=== PATIENT | male | born 1960 | race Caucasian/White ===

== ENCOUNTER 2020-10-25 11:20 | Observation (INO) | payer OTHER, SELFPAY ==
[2020-10-25] VITALS (68 sets, daily range): BP systolic 98–162; BP diastolic 47–84; PULSE 70–103; RESP 10–31; TEMP 36.6; O2SAT 93–100; BMI 31.8
--- NOTE | ~2020-10-25 | XR_ITS ---
XR chest 1V portable DATE: 10/25/2020 14:50 INDICATION: Dizziness. Weakness. Hypertension. TECHNIQUE: Portable AP chest on 10/25/2020 at 1452 hours COMPARISON: 07/11/2018 2 view chest FINDINGS: Normal heart size. No hilar or mediastinal enlargement. No pulmonary infiltrate or consolid ation, pleural effusion or pulmonary vascular congestion or pneumothorax. IMPRESSION: No active cardiopulmonary disease Reviewed, dictated and finalized at location A.
--- NOTE | ~2020-10-25 | CT_ITS ---
EXAMINATION: CT brain wo con EXAM DATE: 10/25/2020 12:35 INDICATION: Dizziness and syncope. TECHNIQUE: Spiral CT of the head was performed without contrast. Axial, coronal and sagittal images were reviewed. The dose-length product (DLP) for this examination was 681.00 mGy-cm. The exposure w as tailored according to patient size, and iterative reconstruction (ASIR) was used as additional dos e reduction technique. There is no prior study for comparison. FINDINGS: There is no acute intraparenchymal hemorrhage. No evidence of intraparenchymal brain mass lesion. No evidence of acute infarction. There is no mass effect or midline shift. The ventricles are normal in size. There are no extra-axial collections. There are no acute calvarial fractures. T he orbits are unremarkable. Soft tissue is unremarkable. The visualized sinuses and mastoid air mayank ls are well aerated. IMPRESSION: 1. No acute intracranial findings. Reviewed, dictated and finalized at location A.
--- NOTE | ~2020-10-25 | US_ITS ---
EXAMINATION: US carotid duplex BI EXAM DATE: 10/26/2020 08:54 INDICATION: Dizziness, vertigo. TECHNIQUE: Grayscale, color and pulsed Doppler images of the cervical carotid arteries were obtained . The degree of vessel stenosis is placed in one of the following categories: normal, <50% stenosis, 50-69% stenosis, >=70% stenosis but less than near-occlusion, near-occlusion, or occlusion. Note that percent stenosis relative to normal distal artery lumen diameter is indirectly measured from velocit y measurements as described by Sunny, et al. Radiology 2003; 229:340-346. There is no prior study fo r comparison. FINDINGS: RIGHT SIDE: Right common carotid artery peak systolic velocity (PSV in cm/s): 87 Right bulb/internal carotid artery peak systolic velocity (PSV in cm/s): 94 Right internal carotid artery end diastolic velocity (EDV in cm/s): 36 Right ICA/CCA peak systolic ratio: 1.1 Right external carotid artery peak systolic velocity (PSV in cm/s): 103 Right vertebral artery antegrade flow: yes There is no focal plaque identified. LEFT SIDE: Left common carotid artery peak systolic velocity (PSV in cm/s): 149 Left bulb/internal carotid artery peak systolic velocity (PSV in cm/s): 69 Left internal carotid artery end diastolic velocity (EDV in cm/s): 22 Left ICA/CCA peak systolic ratio: 0.5 Left external carotid artery peak systolic velocity (PSV in cm/s): 76 Left vertebral artery antegrade flow: yes There is no focal plaque identified. IMPRESSION: 1. Normal right internal carotid artery. 2. Normal left internal carotid artery. Reviewed, dictated and finalized at location A.
--- NOTE | ~2020-10-25 | MR_ITS ---
EXAMINATION: MR brain/brain stem wo/w con DATE: 10/26/2020 08:45 INDICATION: Vertigo. TECHNIQUE: Magnetic resonance imaging (MRI) of the brain and brainstem was performed without and with 20 mL MultiHance intravenous contrast. Sequences included sagittal and axial T1-weighted FSE, axial diffusion-weighted FS EPI, axial T2*-weighted GRE, axial T2-weighted FLAIR Propeller, and axial T2-we ighted Propeller. Postcontrast sequences included axial and coronal T1-weighted FSE. Apparent diffusi on coefficient (ADC) maps were created. COMPARISON: Head CT 10/25/2020 FINDINGS: There is a focus of increased T2-weighted signal intensity in the left frontal lobe deep wh ite matter, which is normal as an isolated finding. There is no intracranial hemorrhage, acute infarc tion, or abnormal intracranial mass lesion. The ventricles are normal in size. The paranasal sinuses are clear. The orbits are normal. The mastoid air cells are normal. IMPRESSION: 1. Normal brain. Reviewed, dictated and finalized at location A. IMPRESSION: 1. Normal brain.
--- NOTE | 2020-10-25 11:27 | ECG_ITS ---
Measurements Intervals Percival Rate: 97 P: 53 NV: 149 QRS: 11 QRSD: 104 T: 32 QT: 359 QTc: 458 Interpretive Statements SINUS RHYTHM NORMAL ECG Electronically Signed On 10-25-2020 15:18:54 CDT by Girma Fung D.O.
[2020-10-25 11:49] LABS: Basophils Absolute Auto 0.1 K/mm3 (0.0-0.1); Basophils Percent Auto 0.8 % (0.2-1.2); Eosinophils Absolute Auto 0.1 K/mm3 (0-0.3); Eosinophils Percent Auto 1.5 % (0-4.4); Hematocrit 48.3 % (42.0-52.0); Hemoglobin 16.7 g/dL (14.0-18.0); Immature Granulocyte Absolute 0.04 K/mm3 (0.00-0.031); Immature Granulocyte Percent A 0.5 % (0-0.5); Lymphocytes Absolute Auto 2.22 K/mm3 (0.9-3.2); Lymphocytes Percent Auto 26.9 % (18.3-44.2); Mean Corpuscular HGB Conc 34.6 g/dl (32-36); Mean Corpuscular Hemoglobin 31.9 pg (26-34); Mean Corpuscular Volume 92.2 fl (80-100); Mean Platelet Volume 9.1 fl (7.4-10.4); Monocytes Absolute Auto 0.7 K/mm3 (0.1-0.6); Monocytes Percent Auto 7.9 % (2.6-8.5); Neutrophils Absolute Auto 5.2 K/mm3 (1.3-6.7); Neutrophils Percent Auto 62.4 % (45.5-73.1); Platelet Count Result 305 k/mm3 (150-375); Red Blood Count 5.24 M/mm3 (4.6-6.20); Red Cell Distribution Width 12.2 % (11.5-14.5); White Blood Count 8.3 K/mm3 (4.5-10.0)
[2020-10-25 12:00] LABS: Anion Gap 11 mmol/L (8-16); Blood Urea Nitrogen 15 mg/dL (9-20); Calcium 9.8 mg/dL (8.4-10.2); Carbon Dioxide 25 mmol/L (22-30); Chloride 106 mmol/L (98-107); Estimated CRCL calculation 95 ml/min; Estimated Glomerular Filt Rate > 60; Glucose 115 mg/dL (75-110); Potassium 3.9 mmol/L (3.4-5.0); Sodium 142 mmol/L (137-145)
[2020-10-25 12:49] LABS: Alanine Aminotransferase 79 U/L (4-50); Albumin Level 4.8 g/dL (3.5-5.1); Alkaline Phosphatase 74 U/L (38-126); Aspartate Amino Transferase 60 U/L (17-59)
--- NOTE | 2020-10-25 12:57 | ED.DIZZY ---
HPI - Dizziness General Chief Complaint: Dizziness Stated Complaint: dizziness Time Seen by Provider: 10/25/20 12:26 Source: patient, family and RN notes reviewed Limitations: no limitations History of Present Illness HPI Narrative: Patient is 60 years old white male brought to the emergency room by his because of dizziness. Patient noticed every time when he sit up from laying down position, everything spins associated with nausea and diaphoresis. Patient also reported that turning his head to either direction can trigger that feeling. The symptoms improves if he remaining still. Patient denies any fever, chills, vomiting, chest pain, shortness of breath, focal deficit. Patient does not take medicine at home, does not smoke or drink or uses drugs. Currently still feeling dizzy while sitting in bed. Related Data Allergies Allergy/AdvReac Type Severity Reaction Status Date / Time ALMA DELIA Inhibitors Allergy Unknown Verified 04/16/13 12:10 cocoa Allergy Unknown Verified 04/16/13 12:10 doxycycline Allergy Unknown Verified 04/16/13 12:09 MUSHROOMS Allergy Intermediate N&V,DIZZINE Uncoded 02/26/15 08:08 SS Chocolate Allergy Unknown DIZZINESS, Uncoded 10/27/17 23:00 IRREGULAR HR Review of Systems Review of Systems: Narrative: CONSTITUTIONAL: Denies fever, chills, or sweats. EYES: Denies visual changes, redness, or discharge. ENT: Denies rhinorrhea, congestion, sore throat, or otalgia. CARDIOVASCULAR: Denies chest pain, palpitations, or edema. RESPIRATORY: Denies cough or dyspnea. GASTROINTESTINAL: Denies abdominal pain, nausea, vomiting, or diarrhea. GENITOURINARY: Denies dysuria or hematuria. SKIN: Denies rash or itching. MUSCULOSKELETAL: Denies back pain, joint pain, or myalgia. NEUROLOGIC: Denies headache, numbness, or weakness. PSYCHIATRIC: Denies anxiety or depression. PMFSH Social History Social History Smoking end date: 05/22/91 Gender identity (if verbalized by the patient): Male Exam Narrative: Exam Narrative: General appearance: Well-developed, well-nourished Skin: Normal color Head: Normocephalic, nontraumatic Eyes: Clear conjunctiva ENT: Oropharynx normal, ears normal, nose normal Neck: Supple, nontender Chest and respiratory: Airway patent, no respiratory distress, no accessory muscle use Heart: Regular rate/rhythm Abdomen: Soft, nontender, no organomegaly, quiet bowel sounds Vascular: Normal peripheral pulses, normal capillary refill. Musculoskeletal: Normal range of motion, nontender back Neurologic: Alert and oriented ?3, HIGHWAY CONSTRUCTION INSPECT[employer] is normal as tested, no gross motor deficit Course Course Emergency Course: Stable Vital Signs Vital signs: Vital Signs Temperature 36.6 C 10/25/20 11:28 Pulse Rate 103 H 10/25/20 11:28 Respiratory Rate 16 10/25/20 11:28 Blood Pressure 136/84 10/25/20 11:28 Pulse Oximetry 97 10/25/20 11:28 Temperature 36.6 C 10/25/20 11:28 Pulse Rate 78 10/25/20 13:31 Respiratory Rate 24 H 10/25/20 13:31 Blood Pressure 131/75 10/25/20 13:31 Pulse Oximetry 95 10/25/20 13:16 MDM - Dizziness MDM Narrative Medical decision making narrative: Benign positional vertigo is my concern. Labs, CT head, chest x-ray, IV access, 5 mg Valium IV, Antivert 25 mg orally, Zofran 8 mg IV ordered. Further plan to follow Differential Diagnosis Differential diagnosis: Likely benign paroxysmal positional vertigo, cerebrovascular accident and acute vestibular neuronitis Lab Data Result diagrams: 10/25/20 11:43 10/25/20 11:43 Labs: Lab Results 10/25/20 10/25/20 10/25/20 Range/Units 11:43 11:43 1
[2020-10-25] MEDS: diazePAM INJ (*CRX) 10 MG/2 ML SYRINGE 5 MG IV PUSH (13:31)
[2020-10-25] MEDS: MECLIZINE HCL 25 MG TABLET PO (13:31)
[2020-10-25] MEDS: ONDANSETRON INJ 4 MG/2 ML VIAL 8 MG IV PUSH (13:31)
[2020-10-25] MEDS: ASPIRIN 81 MG CHEWABLE TABLET 324 MG PO (16:27)
--- NOTE | 2020-10-25 17:55 | ADMGEN ---
This patient, Jaylen Ornelas, was admitted to Medical Room 347-01. Patient/family oriented to hospital policies and general routines including ID bracelet, bed and alarms, visiting hours, pain management, procedures, bathroom and other care routines, personal items, smoking policy, room service/diet, and visiting hours. Information on how to activate the Rapid Response Team has been discussed. Patient/Family are encouraged to report perceived risks to care and to ask questions if they do not understand what they are told or what they should do.
--- NOTE | 2020-10-25 20:16 | PM.IMHP ---
H&P: HPI History of Present Illness Date/Time: 10/25/20 20:16 this is a 60-year-old male patient came to the hospital with his complaining of dizziness. The patient had a previous experience approximately 2 years ago. The patient was given meclizine at that admission and his symptoms resolved. The patient came in today because he noticed that when he would go to sit up from a lying position the patient felt like everything was spinning and he had some nausea and diaphoresis. Patient stated that his dizziness is worse with moving and rotating his head. If he lay still then he does not have any problems with the symptoms. Patient was given IV fluids, Valium, and meclizine. The patient was also given an aspirin. Liver enzymes were mildly elevated AST [address] and ALT [address] Head CT was noted to be no acute intracranial findings. Chest x-ray was read as no acute intracranial diseases. Patient was feeling some relief with the medications in the emergency room. However after receiving these medications he felt like his left leg can fall asleep and was having difficulty walking. The did not feel comfortable taking the patient home so he is admitted to observation status on the date of service of 10/25/2020. Chief Complaint: dizziness Review of Systems Review of Systems: All systems reviewed & are unremarkable except as noted in HPI and below Constitutional: Constitutional: Reports as per HPI and Reports no additional constitutional complaints Eyes: Eyes: Reports as per HPI and Reports no additional eye complaints ENT: Reports system reviewed and no additional complaints, except as documented and Reports Normal hearing present Cardiovascular: Cardiovascular: Reports no additional cardiovascular complaints Respiratory: Respiratory: Reports no additional respiratory complaints and Reports no additional respiratory complaints Gastrointestinal: Gastrointestinal: Reports as per HPI and Reports no additional gastrointestinal complaints Musculoskeletal: Musculoskeletal: Reports no additional musculoskeletal complaints Integumentary/Breasts: Skin/Breast: Reports system reviewed and no additional complaints, except as docu and Reports as per HPI Neurologic: Reports system reviewed and no additional complaints, except as documented, Reports as per HPI and Reports Normal hearing present Psychiatric: Psychiatric: Reports no additional psychiatric complaints and Reports as per HPI Endocrine: Endocrine: Reports no additional endocrine complaints Hematologic/Lymphatic: Hematologic/Lymphatic: Reports no additional hematologic/lymphatic complaints Allergic/Immunologic: Allergic/Immunologic: Reports no additional allergic/immunologic complaints [facility] Past Medical History Medical History (Updated 10/25/20 @ 20:22 by Agnieszka Gregory NP) DVT (deep venous thrombosis) Surgical History Surgical History (Updated 10/25/20 @ 20:22 by Agnieszka Gregory NP) H/O left knee surgery X2 arthroscopic. MCL repair Family History Family History Father Diabetes mellitus Pulmonary embolism Mother Cataract Sibling Cataract Pulmonary embolism Social History Social History (Updated 10/25/20 @ 20:33 by Agnieszka Gregory NP) Social History: The patient lives with his . The patient has 3 children. He works as a senior restaurant manager. The patient used to smoke a pipe and cigarettes. The patient stated that he would prefer for his to be the durable power county attorney for healthcare and that he would like to be a full code. The patient denies any alcohol, marijuana or illicit drugs Smoking packs per day: 1.5 Smoking cigarettes per day: 30.0 Years smoked: 15 Smoking pack-years: 22.50 Smoking status: Former smoker Tobacco type: cigarettes and pipe Substance use type: does not use Gender identity (if verbalized by the patient): Male Spiritual care concerns: No Meds Home Medicati
[2020-10-25] MEDS: MECLIZINE HCL 12.5 MG TABLET PO (20:57)
[2020-10-25] MEDS: SODIUM CHLORIDE 0.9% IV 1,000 ML 100 ML IV CONT (20:58)
[2020-10-26] VITALS (10 sets, daily range): BP systolic 134–162; BP diastolic 61–76; PULSE 73–84; RESP 16; TEMP 35.9–36.6; O2SAT 96–97
--- NOTE | 2020-10-26 | ECHO_ITS ---
Patient Info Name: Jaylen Ornelas Age: 60 years : 1960 Gender: Male Ht: 71 in Wt: 228 lbs BSA: 2.31 m2 HR: 72 bpm BP: 132 / 61 mmHg Heart Rhythm: Sinus Rhythm Technical Quality: Good Exam Date: 10/26/2020 12:07 PM Exam Location: [facility] Exam Room: 347 Patient Status: Inpatient Admit Date: 10/25/2020 Staff Ordering Physician: Agnieszka Gregory NP Service Cleaner: Maritza Terrazas RDCS Attending Provider: Dwight Yun MD Referring Physician: Bri ROSS; Exam Type: CA echo doppler color flow Study Info Indications - dizziness Complete two-dimensional, color flow and Doppler transthoracic echocardiogram is performed. Summary 1. Complete two-dimensional, color flow and Doppler transthoracic echocardiogram is performed. 2. There is mild concentric increased left ventricular wall thickness. 3. Left ventricular systolic function is normal, estimated at 65-70%. 4. There is mild aortic valve sclerosis. 5. The mitral valve has normal leaflets. 6. There is mild aortic valve regurgitation. Left Ventricle Left ventricular chamber dimension is normal. Left ventricular systolic function is normal, estimated at 65-70%. There is mild concentric increased left ventricular wall thickness. The left ventricular diastolic function is normal. Right Ventricle Right ventricular chamber dimension is normal. Left Atria Left atrial chamber dimension is normal. Right Atria Right atrial chamber dimension is normal. Aortic Valve The aortic valve is trileaflet. There is mild aortic valve sclerosis. There is mild aortic valve regurgitation. Pulmonic Valve The pulmonic valve is not well visualized. Mitral Valve The mitral valve has normal leaflets. Tricuspid Valve The tricuspid valve leaflets are normal. Pericardium/Pleural The pericardium appears normal. Aorta The aortic root size at the sinus of Valsalva is normal. Left Ventricular Outflow Tract Name Value Normal LVOT 2D LVOT Diameter 2.2 cm LVOT Doppler LVOT Peak Velocity 126 cm/s LVOT Peak Gradient 6 mmHg LVOT Mean Gradient 4 mmHg LVOT VTI 24 cm LVOT VTI/AV VTI Ratio 0.9 LVOT Stroke Volume 92 ml LVOT CO 23.1 l/min LVOT CI 10.0 l/min/m2 Pulmonic Valve Name Value Normal PV Doppler PV Peak Velocity 81 cm/s PV Peak Gradient 3 mmHg Mitral Valve Name Value Normal MV Doppler
[2020-10-26] MEDS: SODIUM CHLORIDE 0.9% IV 1,000 ML 100 ML IV CONT (07:12)
[2020-10-26] MEDS: MECLIZINE HCL 12.5 MG TABLET PO ×3 (09:11→16:17)
[2020-10-26] MEDS: CARBAMIDE PEROXIDE 6.5% OT SOLN 15 ML BTL 5 DROP EACH EAR (09:11)
[2020-10-26] MEDS: ASPIRIN 81 MG CHEWABLE TABLET PO (09:11)
--- NOTE | 2020-10-26 10:08 | WPDNEURCNPN ---
Assessment and Plan Assessment and plan (1) BPV (benign positional vertigo): Code(s): H81.10 - Benign paroxysmal vertigo, unspecified ear Status: Acute Additional Plan benign positional vertigo and treatment as planned Consult date: 10/26/20 Time Seen: 08:30 HPI: Jaylen Ornelas is a 60 year old male has been admitted to the hospital complaining of dizziness the same symptomatology about couple of years ago and with the information that while he will try to sit up from a laying position he will experience a spinning along with the nausea and diaphoresis if he lays still does not have any problem with the symptomatology he received IV fluids Valium and meclizine in the emergency room along with the aspirin he was found to have some elevation of the hepatic enzyme CT scan of the head was without any space-occupying lesion or the bleed chest x-ray was negative and he felt somewhat better with the medication in the emergency room, he does have history of DVT in the past, history of smoking 30 per day with year's smoke 15 and smoking pack years of 22.5 though at present his not smoking, evaluation includes a normal MRI of the brain, normal Doppler studies and normal chest x-ray in addition to the normal routine lab Review of Systems Review of Systems: All systems reviewed & are unremarkable except as noted in HPI and below PMFSH Past Medical History Medical History DVT (deep venous thrombosis) Surgical History Surgical History H/O left knee surgery X2 arthroscopic. MCL repair Family History Family History Father Diabetes mellitus Pulmonary embolism Mother Cataract Sibling Cataract Pulmonary embolism Social History Social History Social History: The patient lives with his . The patient has 3 children. He works as a global sales manager. The patient used to smoke a pipe and cigarettes. The patient stated that he would prefer for his to be the durable power document review attorney for healthcare and that he would like to be a full code. The patient denies any alcohol, marijuana or illicit drugs Smoking packs per day: 1.5 Smoking cigarettes per day: 30.0 Years smoked: 15 Smoking pack-years: 22.50 Smoking status: Former smoker Tobacco type: cigarettes and pipe Substance use type: does not use Gender identity (if verbalized by the patient): Male Spiritual care concerns: No Meds Home Medications and Allergies Home Medications Medication Instructions Recorded Confirmed Type albuterol sulfate 1 puff INHALATION PRN 10/25/20 10/25/20 History chlorpheniramine maleate 2 mg PO Q4H PRN 10/25/20 10/25/20 History [Chlor-Trimeton] pseudoephedrine HCl [Sudafed] 30 mg PO Q4-6H PRN 10/25/20 10/25/20 History Allergies Allergy/AdvReac Type Severity Reaction Status Date / Time ALMA DELIA Inhibitors Allergy Unknown Swelling Verified 10/25/20 18:20 cocoa Allergy Unknown Other Verified 10/25/20 18:20 doxycycline Allergy Unknown Other Verified 10/25/20 18:20 MUSHROOMS Allergy Intermediate N&V,DIZZINE Uncoded 10/25/20 18:20 SS Chocolate Allergy Unknown DIZZINESS, Uncoded 10/25/20 18:20 IRREGULAR HR Vital Signs Vital Signs - 24 hr 10/25/20 11:28 10/25/20 11:29 10/25/20 11:30 Temperature 36.6 C Pulse Rate 103 H 93 95 Respiratory Rate 16 17 18 Blood Pressure 136/84 Pulse Oximetry 97 10/25/20 11:34 10/25/20 11:45 10/25/20 11:46 Temperature Pulse Rate 100 85 89 Respiratory Rate 23 H 22 H 19 Blood Pressure 126/53 L 121/49 L Pulse Oximetry 95 96 94 10/25/20 11:51 10/25/20 12:00 10/25/20 12:01 Temperature Pulse Rate 88 84 87 Respiratory Rate 16 17 15 Blood Pressure 121/49 L 105/57 L Pulse Oximetry 98 94 94 10/25/20 12:13 10/25/20 12:14 10/25/20 12:15 Temperature
--- NOTE | 2020-10-26 15:22 | PM.DS ---
DS: Admitting Diagnosis Admitting Diagnosis Admitting Diagnosis: vertigo DS: Discharge Diagnosis Discharge Diagnosis (1) BPV (benign positional vertigo): Code(s): H81.10 - Benign paroxysmal vertigo, unspecified ear Status: Acute DS: Summary Hospital Course Hospital Course: This is a 60-year-old male patient came to the hospital with his complaining of dizziness. The patient had a previous experience approximately 2 years ago. The patient was given meclizine at that admission and his symptoms resolved. The patient came in today because he noticed that when he would go to sit up from a lying position the patient felt like everything was spinning and he had some nausea and diaphoresis. Patient stated that his dizziness is worse with moving and rotating his head. If he lay still then he does not have any problems with the symptoms. Patient was given IV fluids, Valium, and meclizine. The patient was also given an aspirin. Liver enzymes were mildly elevated AST [address] and ALT [address] Head CT was noted to be no acute intracranial findings. Chest x-ray was read as no acute intracranial diseases. Patient was feeling some relief with the medications in the emergency room. However after receiving these medications he felt like his left leg can fall asleep and was having difficulty walking. The did not feel comfortable taking the patient home so he is admitted to observation status on the date of service of 10/25/2020. he was admitted and given iv hydration. treated symptomaticaly with meclizine. he had MRi brain whch came back normal. ECHo and carotid doppler came back nrmoal as well. He was also evaluated by neurology and suggested the same. he was comfortabe goign back home. advise to take it easy until the symptoms remain and fu with PCP within next week or so. He is agreeable with the plan. Status at Discharge Functional status at discharge: independent ambulation Overall status at discharge: patient is progressing back to baseline Time Spent with Patient Time attestation: Total time spent providing and/or coordinating discharge services: Exam Narrative: Exam Narrative: GENERAL: The patient is well developed, not in acute distress HEENT: Nonicteric sclerae, PERRLA, EOMI. Oropharynx clear. Moist mucous membranes. Conjunctivae appear well perfused. CHEST: Chest wall is nontender. HEART: Regular rate and rhythm without murmur, rubs, or gallops LUNGS: Clear to auscultation bilaterally. no respiratory distress ABDOMEN: Soft, positive bowel sounds, non-tender, no organomegaly. SKIN: No rash, no excessive bruising, petechiae, or purpura. NEUROLOGIC: Cranial nerves II-XII intact, alert and oriented x 3, no gross motor deficits, no nsytagmus, mild vertigo expereinced on position change subjectively. EXTREMITIES: no edema, cyanosis or clubbing Discharge Plan Discharge Attending physician on discharge: Dwight Yun Consulting providers: Fernie Reilly ; Gold Bermudez Discharging Clinician: Dwight Yun Anticipated Discharge Date/Time: 10/26/20 15:20 Patient Disposition: Home, Self-Care Activity: as tolerated Diet: heart healthy Patient Instructions: Antibiotic Form, Meclizine (By mouth), Vertigo (DC), Syncope (DC), Pain Management (DC), Weakness (DC), Fall Prevention (DC) Stand Alone Forms: General Discharge Information Follow-up/Referrals: Fernie Reilly MD [Physician] - 1 Week Discharge Medications: New meclizine 25 mg tablet 25 mg PO TID PRN (Reason: dizziness) Qty: 30 RF: 0 Continued albuterol sulfate 90 mcg/actuation HFA aerosol inhaler 1 puff INHALATION PRN RF: 0 pseudoephedrine HCl [Sudafed] 30 mg Tablet 30 mg PO Q4-6H PRN (Reason: allergies) RF: 0 chlorpheniramine maleate [Chlor-Trimeton] 4 mg Tablet 2 mg PO Q4H PRN (Reason: allergies) RF: 0 Date of admission: 10/25/20 14:49 Primary Care Provider: PHYSICIAN,SENIOR ENVIRONMENTAL TECHNICIAN Admitting Provider: Essence Swan
== END 2020-10-26 16:42 | disposition home or self-care (01) ==
LOC: ANHED 13:35 → ANH3MED 16:45
PROVIDERS: General Practice; Admitting Provider Family Medicine; Emergency Provider Emergency Medicine; Visit Provider Internal Medicine
DX: H81.10 Benign paroxysmal vertigo, unspecified ear (principal); I35.1 Nonrheumatic aortic (valve) insufficiency; I35.8 Other nonrheumatic aortic valve disorders; Z86.718 Personal history of other venous thrombosis and embolism; Z87.891 Personal history of nicotine dependence; Z79.51 Long term (current) use of inhaled steroids
CPT/HCPCS: 36415; 70450; 70553; 71045; 80048; 80076; 85025; 93005; 93306; 93880; 96361; 96374; 96375; 99285; A9270; A9577; G0378; J2405; J3360; J7030

== ENCOUNTER 2023-03-02 09:22 | Outpatient (CLI) | payer OTHER, SELFPAY ==
[2023-03-02 19:10] LABS: Alanine Aminotransferase 51 U/L (6-50); Albumin Level 4.5 g/dL (3.5-5.1); Alkaline Phosphatase 68 U/L (38-126); Anion Gap 6 mmol/L (8-16); Aspartate Amino Transferase 56 U/L (17-59); Blood Urea Nitrogen 21 mg/dL (9-20); Calcium 9.7 mg/dL (8.4-10.2); Carbon Dioxide 29 mmol/L (22-30); Chloride 104 mmol/L (98-107); Estimated Glomerular Filt Rate > 60; Glucose 89 mg/dL (65-110); Potassium 4.6 mmol/L (3.4-5.0); Sodium 139 mmol/L (137-145)
[2023-03-02 20:13] LABS: Basophils Absolute Auto 0.1 K/mm3 (0.0-0.1); Basophils Percent Auto 1.1 % (0.2-1.2); Eosinophils Absolute Auto 0.1 K/mm3 (0-0.3); Eosinophils Percent Auto 1.5 % (0-4.4); Hematocrit 47.9 % (42.0-52.0); Hemoglobin 16.2 g/dL (14.0-18.0); Immature Granulocyte Absolute 0.02 K/mm3 (0.00-0.031); Immature Granulocyte Percent A 0.3 % (0-0.5); Lymphocytes Absolute Auto 1.53 K/mm3 (0.9-3.2); Lymphocytes Percent Auto 23.7 % (18.3-44.2); Mean Corpuscular HGB Conc 33.8 g/dl (32-36); Mean Corpuscular Hemoglobin 32.1 pg (26-34); Mean Corpuscular Volume 94.9 fl (80-100); Mean Platelet Volume 9.8 fl (7.4-10.4); Monocytes Absolute Auto 0.5 K/mm3 (0.1-0.6); Monocytes Percent Auto 8.4 % (2.6-8.5); Neutrophils Absolute Auto 4.2 K/mm3 (1.3-6.7); Platelet Count Result 290 k/mm3 (150-375); Red Blood Count 5.05 M/mm3 (4.6-6.20); Red Cell Distribution Width 12.2 % (11.5-14.5); White Blood Count 6.5 K/mm3 (4.5-10.0)
[2023-03-03 09:43] LABS: CRP < 0.5 mg/dL (<1.0)
[2023-03-03 10:09] LABS: Immature Reticulocyte Fraction 10.7 % (3.0-15.9); Reticulocyte Hemoglobin Conten 34.9 pg (28.2-35.7); Reticulocyte Percent 2.09 % (0.7-4.3); Reticulocytes Absolute 0.11 M/mm3 (0.02-0.1)
[2023-03-03 11:02] LABS: Erythrocyte Sedimentation Rate 7 mm/hr (0-20)
== END 2023-03-02 09:23 | disposition home or self-care (01) ==
LOC: ANHGOSHLAB 09:23
PROVIDERS: PCP Internal Medicine; Visit Provider Clinical Nurse Specialist
DX: R79.89 Other specified abnormal findings of blood chemistry (principal)
CPT/HCPCS: 36415; 80053; 81256; 82728; 85025; 85046; 85652; 86140

== ENCOUNTER 2023-03-27 10:14 | Outpatient (CLI) | payer OTHER, SELFPAY ==
[2023-03-27 10:37] LABS: Basophils Absolute Auto 0.1 K/mm3 (0.0-0.1); Basophils Percent Auto 0.8 % (0.2-1.2); Eosinophils Absolute Auto 0.1 K/mm3 (0-0.3); Eosinophils Percent Auto 1.3 % (0-4.4); Hematocrit 46.4 % (42.0-52.0); Immature Granulocyte Absolute 0.02 K/mm3 (0.00-0.031); Immature Granulocyte Percent A 0.3 % (0-0.5); Lymphocytes Absolute Auto 1.36 K/mm3 (0.9-3.2); Mean Corpuscular HGB Conc 34.5 g/dl (32-36); Mean Corpuscular Hemoglobin 31.6 pg (26-34); Mean Corpuscular Volume 91.7 fl (80-100); Mean Platelet Volume 9.2 fl (7.4-10.4); Monocytes Absolute Auto 0.5 K/mm3 (0.1-0.6); Monocytes Percent Auto 8.7 % (2.6-8.5); Neutrophils Absolute Auto 4.1 K/mm3 (1.3-6.7); Neutrophils Percent Auto 66.9 % (45.5-73.1); Platelet Count Result 246 k/mm3 (150-375); Red Blood Count 5.06 M/mm3 (4.6-6.20); White Blood Count 6.2 K/mm3 (4.5-10.0)
[2023-03-27 17:03] LABS: Iron 156 ug/dL (49-181)
[2023-03-27 17:09] LABS: Alanine Aminotransferase 50 U/L (6-50); Albumin Level 4.6 g/dL (3.5-5.1); Alkaline Phosphatase 66 U/L (38-126); Anion Gap 8 mmol/L (8-16); Aspartate Amino Transferase 38 U/L (17-59); Bilirubin,Total 0.8 mg/dL (0.2-1.3); Blood Urea Nitrogen 21 mg/dL (9-20); Calcium 9.4 mg/dL (8.4-10.2); Carbon Dioxide 25 mmol/L (22-30); Chloride 105 mmol/L (98-107); Estimated Glomerular Filt Rate > 60; Glucose 87 mg/dL (65-110); Lactate Dehydrogenase 205 U/L (120-246); Potassium 4.7 mmol/L (3.4-5.0); Sodium 138 mmol/L (137-145)
[2023-03-27 17:12] LABS: Percent Iron Saturation 60 % (20-50)
== END 2023-03-27 10:15 | disposition home or self-care (01) ==
LOC: ANHLAB 10:15
PROVIDERS: Nurse Practitioner Family; PCP Internal Medicine; Visit Provider Internal Medicine Hematology & Oncology
DX: E83.119 Hemochromatosis, unspecified (principal)
CPT/HCPCS: 36415; 80053; 81256; 82728; 83540; 83550; 83615; 85025

== ENCOUNTER 2023-04-24 11:38 | Outpatient (CLI) | payer OTHER, SELFPAY ==
[2023-04-24 11:57] LABS: Hematocrit 46.2 % (42.0-52.0); Mean Corpuscular HGB Conc 34.6 g/dl (32-36); Mean Corpuscular Hemoglobin 32.1 pg (26-34); Mean Corpuscular Volume 92.8 fl (80-100); Mean Platelet Volume 9.2 fl (7.4-10.4); Platelet Count Result 331 k/mm3 (150-375); Red Blood Count 4.98 M/mm3 (4.6-6.20); Red Cell Distribution Width 12.1 % (11.5-14.5); White Blood Count 8.4 K/mm3 (4.5-10.0)
[2023-04-24 13:17] LABS: Iron 160 ug/dL (49-181)
[2023-04-24 13:20] LABS: Anion Gap 11 mmol/L (8-16); Blood Urea Nitrogen 22 mg/dL (9-20); Calcium 10.1 mg/dL (8.4-10.2); Carbon Dioxide 27 mmol/L (22-30); Chloride 104 mmol/L (98-107); Estimated Glomerular Filt Rate > 60; Glucose 105 mg/dL (65-110); Potassium 4.5 mmol/L (3.4-5.0); Sodium 142 mmol/L (137-145)
[2023-04-24 13:27] LABS: Percent Iron Saturation 62 % (20-50)
== END 2023-04-24 11:39 | disposition home or self-care (01) ==
LOC: ANHLAB 11:40
PROVIDERS: Nurse Practitioner Family; Visit Provider Internal Medicine Hematology & Oncology
DX: E83.110 Hereditary hemochromatosis (principal)
CPT/HCPCS: 36415; 80048; 82728; 83540; 83550; 85027

== ENCOUNTER 2023-05-31 11:25 | Emergency (ER) | payer OTHER, SELFPAY ==
[2023-05-31 11:30] VITALS: BP 149/73; PULSE 91; RESP 16; TEMP 37.1; O2SAT 100
--- NOTE | 2023-05-31 11:38 | ED.LOWEXIN ---
HPI - Extremity Injury (Lower) General Chief Complaint: Extremity Problem,Nontraumatic Stated Complaint: R LEG PAIN/FEELS HOT Time Seen by Provider: 05/31/23 11:38 Source: patient Mode of arrival: ambulatory Limitations: no limitations History of Present Illness HPI Narrative: 62 yo M presents with c/o pain to lower aspect of R calf. Tender on palpation. Pain for approx. 2 days. No swelling or warmth. Pain worse with movement, better at rest. Has been working on [employer] and has been going up and down stairs more than usual. Did take ibuprofen and this helped pain. All systems reviewed and negative except as noted above. Related Data Home Medications Medication Instructions Recorded Confirmed albuterol sulfate 90 mcg/actuation 1 puff inhalation PRN SOB 10/25/20 05/31/23 aerosol inhaler chlorpheniramine maleate 4 mg 2 mg PO Q4H PRN allergies 10/25/20 05/31/23 tablet (Chlor-Trimeton) mecobalamin (vitamin B12) 5,000 mcg PO 11/02/20 01/25/23 mcg disintegrating tablet Allergies Allergy/AdvReac Type Severity Reaction Status Date / Time ALMA DELIA Inhibitors Allergy Unknown Swelling Verified 05/31/23 11:46 cocoa Allergy Unknown Other Verified 05/31/23 11:46 doxycycline Allergy Unknown Other Verified 05/31/23 11:46 MUSHROOMS Allergy Intermediate N&V,DIZZINE Uncoded 05/31/23 11:46 SS Chocolate Allergy Unknown DIZZINESS, Uncoded 05/31/23 11:46 IRREGULAR HR Review of Systems Review of Systems: CONSTITUTIONAL: Denies fever, chills, or sweats. EYES: Denies visual changes, redness, or discharge. ENT: Denies rhinorrhea, congestion, sore throat, or otalgia. CARDIOVASCULAR: Denies chest pain, palpitations, or edema. RESPIRATORY: Denies cough or dyspnea. GASTROINTESTINAL: Denies abdominal pain, nausea, vomiting, or diarrhea. GENITOURINARY: Denies dysuria or hematuria. SKIN: Denies rash or itching. MUSCULOSKELETAL: Denies back pain, joint pain, or myalgia. reports pain to R calf, worse with movement NEUROLOGIC: Denies headache, numbness, or weakness. PSYCHIATRIC: Denies anxiety or depression. All other systems reviewed are negative, except as documented in HPI. PMFSH Past Medical History Medical History Allergies Arthritis Asthma DVT (deep venous thrombosis) Migraine Transaminitis Surgical History Surgical History H/O left knee surgery X2 arthroscopic. MCL repair Family History Family History Father Diabetes mellitus Pulmonary embolism Mother Cataract Sibling Cataract Pulmonary embolism Social History Social History (Updated 01/25/23 @ 08:34 by Ирина Reeves MA) Social History: The patient lives with his . The patient has 3 children. He works as a truck service manager. The patient used to smoke a pipe and cigarettes. The patient stated that he would prefer for his to be the durable power estate planning attorney for healthcare and that he would like to be a full code. The patient denies any alcohol, marijuana or illicit drugs Smoking packs per day: 1.5 Smoking cigarettes per day: 30.0 Years smoked: 30 Smoking pack-years: 45.00 Smoking status: Former smoker Tobacco type: cigarettes Alcohol intake: current Substance use type: does not use Lack of Transportation: No Lack of Food: Never True Current Housing: I Have Housing Concerned About Future Housing: No Difficulty Paying Gas/Electric Bills: No Difficulty Paying for Meds: No Currently Unemployed: No Education: Master's Degree or Higher Difficulty w/ Childcare or Family Care: No Gender identity (if verbalized by the patient): Male Spiritual care concerns: No Comments At time of signature, agree with nursing past medical, surgical, social and family history. There is no relevant family history pertinent to the presenting complai
== END 2023-05-31 11:50 | disposition home or self-care (01) ==
PROVIDERS: Emergency Provider Nurse Practitioner Family; PCP Internal Medicine
DX: S86.911A Strain of unspecified muscle(s) and tendon(s) at lower leg level, right leg, initial encounter (principal); Z79.899 Other long term (current) drug therapy; Z86.718 Personal history of other venous thrombosis and embolism; Z87.891 Personal history of nicotine dependence; X58.XXXA Exposure to other specified factors, initial encounter
CPT/HCPCS: 99211; G0463

== ENCOUNTER 2023-06-23 14:32 | Outpatient (CLI) | payer OTHER, SELFPAY ==
[2023-06-23 14:50] LABS: Hematocrit 45.7 % (42.0-52.0); Hemoglobin 15.6 g/dL (14.0-18.0); Mean Corpuscular HGB Conc 34.1 g/dl (32-36); Mean Corpuscular Hemoglobin 31.8 pg (26-34); Mean Corpuscular Volume 93.1 fl (80-100); Mean Platelet Volume 8.8 fl (7.4-10.4); Platelet Count Result 309 k/mm3 (150-375); Red Blood Count 4.91 M/mm3 (4.6-6.20); Red Cell Distribution Width 11.9 % (11.5-14.5); White Blood Count 6.9 K/mm3 (4.5-10.0)
[2023-06-23 15:34] LABS: Iron 115 ug/dL (49-181)
[2023-06-23 15:35] LABS: Anion Gap 4 mmol/L (8-16); Blood Urea Nitrogen 19 mg/dL (9-20); Carbon Dioxide 30 mmol/L (22-30); Chloride 106 mmol/L (98-107); Estimated Glomerular Filt Rate > 60; Glucose 110 mg/dL (65-110); Potassium 4.5 mmol/L (3.4-5.0); Sodium 140 mmol/L (137-145)
[2023-06-23 15:44] LABS: Percent Iron Saturation 42 % (20-50)
== END 2023-06-23 14:33 | disposition home or self-care (01) ==
LOC: ANHLAB 14:34
PROVIDERS: Nurse Practitioner Family; PCP Internal Medicine; Visit Provider Internal Medicine Hematology & Oncology
DX: E83.110 Hereditary hemochromatosis (principal)
CPT/HCPCS: 36415; 80048; 82728; 83540; 83550; 85027